=== PATIENT | female | born 1945 | race African-American/Black ===

== ENCOUNTER 2016-09-30 14:38 | Inpatient (IN) | payer MEDICARE, MEDICAID ==
[~2016-09-30] VITALS: Ht 160 cm; Wt 72.6 kg
[2016-09-30 15:07] VITALS: BP 73/24
--- NOTE | 2016-09-30 15:48 | Diagnostic Imaging Report ---
Indication: SOB Technique: One view of the chest Comparison: none Findings: Heart is mildly enlarged. There is central bronchial wall thickening, but no eliel congestion, infiltrate, or effusion. Impression: Cardiomegaly. No definite acute process
[2016-09-30 16:10] LABS: MEAN CORPUSCULAR HGB CONC 32.3 G/DL (32.0-36.0); MEAN CORPUSCULAR VOLUME 99 FL (80-99); MEAN PLATELET VOLUME 13.4 FL (6.5-10.1); PLATELET COUNT 119 K/UL (150-450); RED BLOOD COUNT 2.96 M/UL (4.20-5.40); WHITE BLOOD COUNT 17.4 K/UL (4.8-10.8)
[2016-09-30 16:14] LABS: BASOPHILS % (AUTO) 0.7 % (0.0-2.0); EOSINOPHILS % (AUTO) 0.1 % (0.0-3.0); LYMPHOCYTES % (AUTO) 5.8 % (20.0-45.0); MONOCYTES % (AUTO) 3.5 % (1.0-10.0)
[2016-09-30 16:23] LABS: INR 1.1 (0.9-1.1); PROTHROMBIN TIME 11.4 SEC (9.30-11.50)
[2016-09-30 16:29] LABS: ALANINE AMINOTRANSFERASE 78 U/L (3-33); ALBUMIN/GLOBULIN RATIO 0.7 (1.0-2.7); ASPARTATE AMINO TRANSFERASE 172 U/L (5-40); CALCIUM 8.5 mg/dL (8.6-10.2); CHLORIDE 95 mEQ/L (98-107); CREATININE 3.7 mg/dL (0.5-0.9); GLOMERULAR FILTRATION RATE 14.8 mL/min (>60); HEMOLYSIS 9; POTASSIUM 4.6 mEQ/L (3.4-4.9); SODIUM 129 mEQ/L (135-145)
[2016-09-30 16:31] LABS: TROPONIN I 23.56 ng/mL (<=0.30)
[2016-09-30 16:40] LABS: CKMB 60.4 ng/mL (< 3.8)
[2016-09-30] MEDS: Heparin 5000 units/ml inj IV ONE ×2 (16:40→16:43)
[2016-09-30 16:45] LABS: REFLEX LACTIC ACID YES OR NO YES
[2016-09-30] MEDS ORDERED: Heparin 25,000u/D5W 500ml 500 ML IV SCH (16:45)
[2016-09-30 16:51] LABS: ANION GAP 30 (5-15); CARBON DIOXIDE 4 mEQ/L (20-30)
[2016-09-30] MEDS ORDERED: FUROSEMIDE40 MG ORAL (16:58)
[2016-09-30] MEDS ORDERED: ASPIR 8181 MG ORAL (16:58)
[2016-09-30] MEDS ORDERED: SPIRONOLACTONE1 EACH ORAL (16:58)
[2016-09-30] MEDS ORDERED: ATORVASTATIN CA40 MG ORAL (16:58)
[2016-09-30] MEDS ORDERED: XANAX0.25 MG ORAL (16:58)
[2016-09-30] MEDS ORDERED: METOPROLOL TART50 M1 ORAL (16:58)
[2016-09-30] MEDS ORDERED: PLAQUENIL200 MG ORAL (16:58)
[2016-09-30] MEDS ORDERED: METFORMIN HCL500 M1 ORAL (16:58)
[2016-09-30] MEDS ORDERED: CHLORTHALIDONE25 MG ORAL (16:58)
[2016-09-30] MEDS ORDERED: ISOSORBIDE MON120 M1 PO (16:58)
[2016-09-30] MEDS ORDERED: AMLODIPINE BESY10 MG ORAL (16:58)
[2016-09-30] MEDS ORDERED: LEFLUNOMIDE20 MG PO (16:58)
[2016-09-30] MEDS ORDERED: CLOPIDOGREL75 MG ORAL (16:58)
[2016-09-30] MEDS ORDERED: Ampicillin/Sulbactam Sod 3 GM in NS 110 ML IVPB ONE (17:00)
[2016-09-30] MEDS ORDERED: Lidocaine 1% MPF 10mg/ml 5ml ONE (17:17)
[2016-09-30 17:57] VITALS: BP 98/50
[2016-09-30] MEDS ORDERED: DOPamine 400mg/250ml 250 ML IV SCH (18:00)
[2016-09-30 18:26] LABS: APPEARANCE,URINE SLIGHTLY CLOUDY; KETONES,URINE NEGATIVE (NEGATIVE); LEUKOCYTE ESTERASE ,URINE 2+ (NEGATIVE); NITRITE,URINE NEGATIVE (NEGATIVE); PH,URINE 5 (4.5-8.0); PROTEIN,URINE 2+ (NEGATIVE); UROBILINOGEN,URINE 1 MG/DL (0.0-1.0)
--- NOTE | 2016-09-30 18:29 | Emergency Room Report ---
History of Present Illness General Chief Complaint: Dyspnea/Respdistress Source: Patient, EMS Present Illness HPI Patient is a 71-year-old female brought in by ambulance after increased difficulty breathing. The patient gradual onset of symptoms with the past 2 days. Patient had subjective fever the patient was noted to be diabetic. Patient prior cardiac stent placement x3. Patient states that she usually followed at [facility]. Patient prior history of congestive heart failure. She had not been not been vomiting. The patient had some recent fall. Patient was noted to some diarrheal stool over the past few days. She Allergies: Coded Allergies: No Known Allergies (Unverified , 09/30/16) Patient History Past Medical History: see triage record Reviewed Nursing Documentation: PMH: Agreed, PSxH: Agreed Nursing Documentation-PMH Past Medical History: No History, Except For Hx Cardiac Problems: Yes - AFIB Hx Hypertension: Yes Hx Diabetes: Yes Hx Cerebrovascular Accident: Yes Review of Systems All Other Systems: negative except mentioned in HPI Physical Exam Vital Signs Date Time Temp Pulse Resp B/P Pulse Ox O2 Delivery O2 Flow Rate FiO2 09/30/16 14:34 69 20 115/87 96 Nasal Cannula 4.0 09/30/16 17:57 97.0 Sp02 EP Interpretation: reviewed, normal General Appearance: normal inspection, alert, GCS 15, severe distress Head: atraumatic ENT: normal ENT inspection, hearing grossly normal, normal voice Neck: normal inspection, full range of motion, supple, no bony tend Respiratory: normal inspection, lungs clear, normal breath sounds, no respiratory distress, no retraction, no wheezing Cardiovascular #1: regular rate, rhythm, no edema, no gallop Gastrointestinal: normal inspection, normal bowel sounds, non tender, soft, no guarding, no hernia Genitourinary: no CVA tenderness Musculoskeletal: normal inspection, back normal, normal range of motion Neurologic: normal inspection, alert, oriented x3, responsive, body builder III-XII nml as tested, speech normal, motor weakness - right lower extremity Psychiatric: normal inspection, judgement/insight normal, mood/affect normal Skin: no rash, pallor Procedures Critical Care Time Critical Care Time Patient had a critical medical condition which untreated could potentially result in life or limb threatening injury. Total critical care time excluding procedures approximately 1 hour . Central Line Central Line : Consent: Emergent Central Line Lumen: triple Maximal Sterile Barrier Tech: yes cap, yes mask, yes sterile gown, yes sterile gloves, yes large sterile sheet, yes hand hygiene, yes chlorhexidine prep Central Line Postion: internal jugular (R) Anesthesia: local cc's of anesthesia: 3 Complications: none Central Line Post Position: sutured, good blood return, position confirmed w / CXR Attempts: One Patient Tolerated: Well Complications: None Medical Decision Making Diagnostic Impression: Primary Impression: Respiratory distress Additional Impressions: Myocardial infarction Congestive heart failure Acute renal insufficiency Rhabdomyolysis Cardiogenic shock Anemia ER Course Patient presented for shortness of breath. Differential included but was not limited to anemia, pneumonia, pneumothorax, myocardial infarction, pericardial effusion, congestive heart failure, acidosis. Because of complexity of patient' s case laboratory testing and imaging studies were ordered. Patient was given IV fluids initially for hypotension. I EKG and rhythm me showed normal sinus rhythm with a rate of 62 with a left bundle-branch block. The patient noted be hypotensive. Patient had some improvement initially with IV fluids. Laboratory testing showed elevated white blood count as well as evidence of anemia. The patient was initially type and crossed for blood due to extreme pallor. Chest x-ray one view read by radiology showed cardiomegaly without evident acute processLaboratory testing was notable for a markedly elevated troponin. The patient started on IV pressor due to hypotension. A right internal jugular central venous line was placed. The patient was noted to have a markedly elevated creatinine per Dr. Diaz at [facility] the patient has had intermittent elevations or creatinine the past but not this elevated. Patient appears to have had a recent myocardial infarction. The patient started on aspirin as well as a heparin drip.The patient was noted to have a evidence of a recent myocardial injury. The patient may need cardiac catheterization despite elevated creatinine. The patient was discussed with . Labs Test 09/30/16 15:50 09/30/16 17:45 White Blood Count 17.4 K/UL (4.8-10.8) Red Blood Count 2.96 M/UL (4.20-5.40) Hemoglobin 9.5 G/DL (12.0-16.0) Hematocrit 29.3 % (37.0-47.0) Mean Corpuscular Volume 99 FL (80-99) Mean Corpuscular Hemoglobin 32.0 PG (27.0-31.0) Mean Corpuscular Hemoglobin Concent 32.3 G/DL (32.0-36.0) Red Cell Distribution Width 15.0 % (11.6-14.8) Platelet Count 119 K/UL (150-450) Mean Platelet Volume 13.4 FL (6.5-10.1) Neutrophils (%) (Auto) 90.0 % (45.0-75.0) Lymphocytes (%) (Auto) 5.8 % (20.0-45.0) Monocytes (%) (Auto) 3.5 % (1.0-10.0) Eosinophils (%) (Auto) 0.1 % (0.0-3.0) Basophils (%) (Auto) 0.7 % (0.0-2.0) Prothrombin Time 11.4 SEC (9.30-11.50) Prothromb Time International Ratio 1.1 (0.9-1.1) Activated Partial Thromboplast Time 33 SEC (23-33) Sodium Level 129 mEQ/L (135-145) Potassium Level 4.6 mEQ/L (3.4-4.9) Chloride Level 95 mEQ/L (98-107) Carbon Dioxide Level 4 mEQ/L (20-30) Anion Gap 30 (5-15) Blood Urea Nitrogen 98 mg/dL (7-23) Creatinine 3.7 mg/dL (0.5-0.9) Estimat Glomerular Filtration Rate 14.8 mL/min (>60) Glucose Level 262 mg/dL (74-106) Lactic Acid Level 4.00 mmol/L (0.66-2.22) Calcium Level 8.5 mg/dL (8.6-10.2) Total Bilirubin 0.3 mg/dL (0.0-1.2) Aspartate Amino Transf (AST/SGOT) 172 U/L (5-40) Alanine Aminotransferase (ALT/SGPT) 78 U/L (3-33) Alkaline Phosphatase 94 U/L (35-104) Total Creatine Kinase 5508 U/L (26-140) Creatine Kinase MB 60.4 ng/mL (< 3.8) Creatine Kinase MB Relative Index 1.0 Troponin I 23.56 ng/mL (<=0.30) Pro-B-Type Natriuretic Peptide > 32673 pg/mL (0-125) Total Protein 6.0 g/dL (6.6-8.7) Albumin 2.6 g/dL (3.5-5.2) Globulin 3.4 g/dL Albumin/Globulin Ratio 0.7 (1.0-2.7) EKG Diagnostic Results Rate: bradycardiac Rhythm: NSR ST Segments: other - left bundle branch block Chest X-Ray Diagnostic Results EP Interpretation: Yes Findings: no consolidation, no effusion, no pneumothorax, no acute cardiopulmonary disease Number of Views: 1 Last Vital Signs Date Time Temp Pulse Resp B/P Pulse Ox O2 Delivery O2 Flow Rate FiO2 09/30/16 18:06 98/50 09/30/16 17:57 97.0 63 29 94 Nasal Cannula 4.0 Status: unchanged Disposition: XFER [facility] Condition: Critical Referrals: [facility] (PCP) Jasson Fernández Sep 30, 2016 18:29
[2016-09-30 18:33] LABS: ICTOTEST NEGATIVE
[2016-09-30 18:45] LABS: BACTERIA,URINE MANY /HPF; SQUAMOUS EPITHELIAL CELL,UR MODERATE /LPF (NONE/OCC)
[2016-09-30 18:50] VITALS: BP 64/48
[2016-09-30] MEDS ORDERED: Unasyn 3gm Inj ONE (18:55)
[2016-09-30 20:20] VITALS: BP 99/76
--- NOTE | 2016-09-30 21:19 | Cardiology Progress Note ---
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 anemia acute renal failure icm acidosis possible rhabdomyolysis verly limited non recordable bedside echo by myself shows septum an apex akinetic possible inferior wall and distal ant akinetic as well bp has improved somewhat with ivf remain sig acidotic need dialysis with a bicarb of 4 need record form [place] empiric iv abx for now pending further info i have contacted linda arguelles nati may be micu if bed avialbel i doubt she will benfit form cath watch hgb with hydration heasd ct in light of head ache Objective Last 24 Hour Vital Signs Date Time Temp Pulse Resp B/P Pulse Ox O2 Delivery O2 Flow Rate FiO2 09/30/16 20:20 97.0 86 21 99/76 94 Nasal Cannula 4.0 09/30/16 18:50 64/48 09/30/16 18:50 97.0 70 25 64/48 94 Nasal Cannula 4.0 09/30/16 18:36 88/44 09/30/16 18:06 98/50 09/30/16 17:57 97.0 63 29 98/50 94 Nasal Cannula 4.0 09/30/16 15:07 63 24 73/24 96 Nasal Cannula 4.0 09/30/16 15:07 63 24 Nasal Cannula 4.0 09/30/16 14:34 69 20 115/87 96 Nasal Cannula 4.0 Laboratory Tests Test 09/30/16 15:50 09/30/16 17:45 09/30/16 19:00 White Blood Count 17.4 K/UL (4.8-10.8) H Red Blood Count 2.96 M/UL (4.20-5.40) L Hemoglobin 9.5 G/DL (12.0-16.0) L Hematocrit 29.3 % (37.0-47.0) L Mean Corpuscular Volume 99 FL (80-99) Mean Corpuscular Hemoglobin 32.0 PG (27.0-31.0) H Mean Corpuscular Hemoglobin Concent 32.3 G/DL (32.0-36.0) Red Cell Distribution Width 15.0 % (11.6-14.8) H Platelet Count 119 K/UL (150-450) L Mean Platelet Volume 13.4 FL (6.5-10.1) H Neutrophils (%) (Auto) 90.0 % (45.0-75.0) H Lymphocytes (%) (Auto) 5.8 % (20.0-45.0) L Monocytes (%) (Auto) 3.5 % (1.0-10.0) Eosinophils (%) (Auto) 0.1 % (0.0-3.0) Basophils (%) (Auto) 0.7 % (0.0-2.0) Prothrombin Time 11.4 SEC (9.30-11.50) Prothromb Time International Ratio 1.1 (0.9-1.1) Activated Partial Thromboplast Time 33 SEC (23-33) Sodium Level 129 mEQ/L (135-145) L Potassium Level 4.6 mEQ/L (3.4-4.9) Chloride Level 95 mEQ/L (98-107) L Carbon Dioxide Level 4 mEQ/L (20-30) *L Anion Gap 30 (5-15) H Blood Urea Nitrogen 98 mg/dL (7-23) H Creatinine 3.7 mg/dL (0.5-0.9) H Estimat Glomerular Filtration Rate 14.8 mL/min (>60) Glucose Level 262 mg/dL (74-106) H Lactic Acid Level 4.00 mmol/L (0.66-2.22) H 2.30 mmol/L (0.66-2.22) H Calcium Level 8.5 mg/dL (8.6-10.2) L Total Bilirubin 0.3 mg/dL (0.0-1.2) Aspartate Amino Transf (AST/SGOT) 172 U/L (5-40) H Alanine Aminotransferase (ALT/SGPT) 78 U/L (3-33) H Alkaline Phosphatase 94 U/L (35-104) Total Creatine Kinase 5508 U/L (26-140) H Creatine Kinase MB 60.4 ng/mL (< 3.8) H Creatine Kinase MB Relative Index 1.0 Troponin I 23.56 ng/mL (<=0.30) *H Pro-B-Type Natriuretic Peptide > 22378 pg/mL (0-125) H Total Protein 6.0 g/dL (6.6-8.7) L Albumin 2.6 g/dL (3.5-5.2) L Globulin 3.4 g/dL Albumin/Globulin Ratio 0.7 (1.0-2.7) L Urine Color Yellow Urine Appearance Slightly cloudy Urine pH 5 (4.5-8.0) Urine Specific [place] 1.025 (1.005-1.035) Urine Protein 2+ (NEGATIVE) H Urine Glucose (UA) 1+ (NEGATIVE) H Urine Ketones Negative (NEGATIVE) Urine Occult Blood 2+ (NEGATIVE) H Urine Nitrite Negative (NEGATIVE) Urine Bilirubin 2+ (NEGATIVE) H Urine Ictotest Negative Urine Urobilinogen 1 MG/DL (0.0-1.0) H Urine Leukocyte Esterase 2+ (NEGATIVE) H Urine RBC 5-10 /HPF (0 - 2) H Urine WBC 5-10 /HPF (0 - 2) H Urine Squamous Epithelial Cells Moderate /LPF (NONE/OCC) H Urine Bacteria Many /HPF (NONE) H JAYCOB MANN Sep 30, 2016 21:19
[2016-09-30 21:43] VITALS: BP 112/37
--- NOTE | 2016-09-30 22:39 | Consultation ---
DATE OF CONSULTATION: 09/30/2016 CRITICAL CARDIOLOGY CONSULTATION REASON FOR EVALUATION: Management of the hypotension and myocardial infarction. HISTORY OF PRESENT ILLNESS: This is a 71-year-old female, whose information is obtained from my discussion with the patient as well as her sister who just arrived here from [place] yesterday and from discussion with the emergency room physician, Dr. Fernández. It appears that this patient may have had some episodes of chest pain some time in the past few days, I am not clear but a week ago or four days ago. When her sister called her on Wednesday three days ago, she found her to be disoriented and tachypneic and confused. Her sister in [place] did have the paramedics visit her. Apparently, the paramedics did visit her and it is not clear what happened, but they never did take her to the emergency room. The patient's grandson was apparently there when the paramedics arrived, but he does not know what happened. Anyway, she had fallen and she was not able to get up and eventually was taken up and yesterday her sister called again. We tried to communicate with her and she was not answering. She came over apparently and found her between two beds. Her grandson did eventually show up and helped her out of bed, out at the position and into the bed. Her sister found her again confused and decided again because of her worsening condition today to bring her to the hospital here at the emergency room. She absolutely denies any chest pain at this time. Denies any shortness of breath. Denies any PND or orthopnea or palpitations, but she is sort of slow to mentate. Her past medical history is apparently positive for high blood pressure and high cholesterol, although she has been with those since yesterday. Today, nothing extraordinary happened, except for the persistent symptoms. Again, the patient denies any chest pain or pressure. No PND. No orthopnea. No palpitations at this time, but she is again confused. PAST MEDICAL HISTORY: Positive for a history of myocardial infarction a number of months ago, possibly in 07/2015. According to her sister, it appears that the information obtained by the emergency room physician here from [place] that she may have had a cardiac cath and had a non-ST elevation myocardial infarction. A stent was placed at that time. Creatinine is apparently at 1.2 and she had diffuse disease apparently and LV function post was reportedly 70%. ALLERGIES: The patient is not allergic to any medications. SOCIAL HISTORY: She has quit smoking 2 years ago. Does not drink alcoholic beverages. She apparently lives by herself. REVIEW OF SYSTEMS: She denies any nausea or vomiting. She has not eaten anything for a few days, certainly not since yesterday, but she thinks even before her sister's arrival, she has had not eaten anything. PHYSICAL EXAMINATION: GENERAL: Shows to be pale, middle-aged female, in no apparent respiratory distress. NECK: Supple. No jugular venous distention. LUNGS: Her lungs are absolutely clear to auscultation and percussion. CARDIAC: Regular rate and rhythm with holosystolic regurgitant murmur at the apex. ABDOMEN: Soft and obese. Positive bowel sounds. EXTREMITIES: There is no clubbing, cyanosis, nor is there any significant edema. PHYSICAL EXAMINATION: VITAL SIGNS: Her blood pressure has been as low as 64/48, but most recently is 112/65. LABORATORY DATA: Sodium 129, potassium 4.2, chloride 95, bicarbonate 4, BUN 98, creatinine 3.7, and glucose of 262. Lactic acid is 4 and subsequently 2.3. Calcium is 8.5. AST 172, ALT 78, and total CPK of 5500. Troponin is 23.56. ProBNP is greater than 70,000, however, in light of creatinine of 3.7, it may not be a trouble. Her albumin is 2.6. Her white count is 17.4 with a hemoglobin 9.5 and platelet count of 119,000. Coags, INR 1.1 and a PTT of 33. Urinalysis shows 5 to 10 WBCs, 5 to 10 RBCs, 2+ leukocyte esterase, 1+ urobilinogen, moderate squamous epithelial, many bacteria being noted. A chest x-ray performed in the emergency room shows cardiomegaly and possibly some left-sided effusion. Interpretation by the radiologist shows no acute process. EKG shows left bundle-branch conduction defect with secondary ST-segment changes in the leads 2 and 3 as well. ASSESSMENT AND PLAN: 1. Myocardial infarction with late presentation. 2. Acute renal failure. 3. Possible rhabdomyolysis. 4. Shock, probably a combination of hypovolemic as well as a component of cardiac dysfunction. 5. Anemia. This is prehydration. 6. Leukocytosis, possibly related to either myocardial infarction and/or combination with the possibility of an infectious process. This patient's condition has improved with some hydration here in the emergency room with latest blood pressure being 112. I suspect that she has actually been volume depleted because of her poor p.o. intake and possibly even had the experience of rhabdomyolysis that may have contributed to acute renal failure. I performed a bedside limited view echo that showed left ventricular systolic dysfunction. The entire septum and the apex appear to be hypokinetic or akinetic. There may be some akinetic in the distal inferior wall. Anterior wall proximally, which is visualized appears to have some motion. The ejection fraction is not estimable as I have not performed a full echocardiogram, just enough for this limited views in the probably approximately 35% or so. She is severely acidotic and she requires probably a combination of antibiotic therapy while supporting her cardiac-camacho and she would require possibly dialysis because of acidosis. I have contacted [facility] and discussed with the emergency room physician here with Dr. Jordan as well as [facility]. Await bed in the Medical Intensive Care unit to transfer her that she would probably get dialysis. I am unable to perform a dialysis catheter at this point here. [facility] is to transfer her to a higher level of care, so she gets dialysis. As far as her cath is concerned, I think she is too late in her presentation. She is not experiencing any chest pain at this time and I am not sure she is going to benefit from urgent cardiac catheterization, but she may benefit from other medical treatments including hydration and dialysis. Raman Greene M.D. DR: ELAN JOB#: [id number] CC:
[2016-09-30 23:15] VITALS: BP 111/93
[2016-09-30] MEDS ORDERED: Nitroglycerin Subl 0.4mg tab (Bottle Of 25) SL PRN (23:30)
[2016-09-30] MEDS ORDERED: Miralax 17gm pkt ORAL PRN (23:30)
[2016-09-30] MEDS ORDERED: Morphine Sulfate 4mg/ml Inj IVP PRN (23:30)
[2016-09-30] MEDS ORDERED: LORazepam Inj 2mg/ml 1ml IV PRN (23:30)
[2016-09-30] MEDS ORDERED: DuoNeb 0.5-3(2.5)mg/3ml neb HHN PRN (23:30)
[2016-09-30 23:55] LABS: INR 1.1 (0.9-1.1)
[2016-09-30 23:58] LABS: ALANINE AMINOTRANSFERASE 83 U/L (3-33); ALBUMIN/GLOBULIN RATIO 0.9 (1.0-2.7); ANION GAP 27 (5-15); ASPARTATE AMINO TRANSFERASE 194 U/L (5-40); CALCIUM 8.1 mg/dL (8.6-10.2); CHLORIDE 95 mEQ/L (98-107); CREATININE 3.4 mg/dL (0.5-0.9); GLOMERULAR FILTRATION RATE 16.2 mL/min (>60); HEMOLYSIS 2; POTASSIUM 4.4 mEQ/L (3.4-4.9); SODIUM 130 mEQ/L (135-145); TOTAL PROTEIN 5.8 g/dL (6.6-8.7)
[2016-10-01] VITALS (52 sets, daily range): BP systolic 73–127; BP diastolic 34–82
[2016-10-01] LABS: CARBON DIOXIDE 8 mEQ/L (20-30); TROPONIN I 19.62 ng/mL (<=0.30)
[2016-10-01] MEDS: DOPamine 400mg/250ml 250 ML IV SCH ×2 (01:17→09:07)
[2016-10-01] MEDS: Heparin 25,000u/D5W 500ml 500 ML IV SCH ×2 (01:24→13:05)
[2016-10-01 05:17] LABS: MEAN CORPUSCULAR HEMOGLOBIN 31.8 PG (27.0-31.0); MEAN CORPUSCULAR HGB CONC 31.5 G/DL (32.0-36.0); MEAN CORPUSCULAR VOLUME 101 FL (80-99); MEAN PLATELET VOLUME 14.1 FL (6.5-10.1); PLATELET COUNT 120 K/UL (150-450); RED BLOOD COUNT 3.04 M/UL (4.20-5.40); RED CELL DISTRIBUTION WIDTH 15.1 % (11.6-14.8); WHITE BLOOD COUNT 11.7 K/UL (4.8-10.8)
[2016-10-01 05:30] LABS: INR 1.1 (0.9-1.1); PROTHROMBIN TIME 11.1 SEC (9.30-11.50)
[2016-10-01 05:39] LABS: ALANINE AMINOTRANSFERASE 82 U/L (3-33); ALBUMIN/GLOBULIN RATIO 0.7 (1.0-2.7); ANION GAP 27 (5-15); ASPARTATE AMINO TRANSFERASE 187 U/L (5-40); CALCIUM 8.1 mg/dL (8.6-10.2); CHLORIDE 97 mEQ/L (98-107); CREATININE 3.3 mg/dL (0.5-0.9); GLOMERULAR FILTRATION RATE 16.8 mL/min (>60); HEMOLYSIS 6; MAGNESIUM 1.8 mg/dL (1.7-2.5); POTASSIUM 4.3 mEQ/L (3.4-4.9); SODIUM 131 mEQ/L (135-145); TOTAL PROTEIN 5.7 g/dL (6.6-8.7); URIC ACID 14.6 mg/dL (3.0-7.5)
[2016-10-01 05:41] LABS: BILIRUBIN,DIRECT 0.1 mg/dL (0.1-0.3); CARBON DIOXIDE 7 mEQ/L (20-30); PHOSPHORUS 6.7 mg/dL (2.5-4.8); TOTAL PROTEIN 5.8 g/dL (6.6-8.7)
[2016-10-01 05:43] LABS: REFLEX LACTIC ACID YES OR NO YES
[2016-10-01 05:48] LABS: APPEARANCE,URINE CLOUDY; KETONES,URINE NEGATIVE (NEGATIVE); LEUKOCYTE ESTERASE ,URINE 1+ (NEGATIVE); NITRITE,URINE NEGATIVE (NEGATIVE); PH,URINE 5 (4.5-8.0); PROTEIN,URINE 2+ (NEGATIVE); UROBILINOGEN,URINE NORMAL MG/DL (0.0-1.0)
[2016-10-01 05:51] LABS: TROPONIN I 10.75 ng/mL (<=0.30)
[2016-10-01 05:53] LABS: FREE T3 1.4 pg/mL (2.3-4.2); THYROID STIMULATING HORMONE 0.637 uIU/mL (0.300-4.500)
[2016-10-01 05:59] LABS: RBC,URINE 15-20 /HPF (0 - 2)
[2016-10-01 06:00] LABS: BACTERIA,URINE FEW /HPF; CALCIUM OXALATE CRYSTALS,UR FEW /LPF; HYALINE CASTS, URINE 0-2 /LPF; SQUAMOUS EPITHELIAL CELL,UR MODERATE /LPF (NONE/OCC)
[2016-10-01] MEDS: ALPRAZolam 0.25mg tab ORAL SCH ×2 (08:53→12:37)
[2016-10-01] MEDS ORDERED: Heparin 5000 units/ml inj SUBQ SCH (09:00)
[2016-10-01] MEDS ORDERED: Sodium Citrate 30ml ORAL ONE (09:15)
[2016-10-01] MEDS ORDERED: Sodium Bicarbonate 50 ML in NS 1000ml 1,000 ML IV SCH (09:26)
--- NOTE | 2016-10-01 09:28 | Consultation ---
Consult Note Consult Note asked to eval for renal failure- Patient is a 71-year-old female brought in by ambulance after increased difficulty breathing. The patient gradual onset of symptoms with the past 2 days. Patient had subjective fever the patient was noted to be diabetic. Patient prior cardiac stent placement x3. Patient states that she usually followed at [place]. Patient prior history of congestive heart failure. She had not been not been vomiting. The patient had some recent fall. Patient was noted to some diarrheal stool over the past few days. She Past Medical History: No History, Except For Hx Cardiac Problems: Yes - AFIB Hx Hypertension: Yes Hx Diabetes: Yes Hx Cerebrovascular Accident: Yes . Assessment/Plan status; acute renal failure- acute cardiac ischemic event Rhabdo Metabolic acidosis Anemia High CEA Plan: IV Protonix- IV bicard and PO Bicitra- Hydrate, watch for CHF Sx Anemia work up Plavix-Lipitor- ASA Monitor renal parameters- ARAMIS ZAPATA Oct 01, 2016 09:28
[2016-10-01] MEDS ORDERED: Pantoprazole Inj IVP SCH (10:00)
[2016-10-01] MEDS ORDERED: Atorvastatin 80mg tab ORAL ONE (10:00)
--- NOTE | 2016-10-01 10:09 | Diagnostic Imaging Report ---
Indication: SOB, status post central line placement Technique: One view of the chest Comparison: 3 hours earlier Findings: Interim placement right jugular central venous catheter, tip of which projects at the level of the cavoatrial junction. No gross pneumothorax. The heart is enlarged. The lungs and pleural spaces are clear Impression: Satisfactory placement right jugular central venous catheter, no radiographically evident complication Otherwise stable, as described
[2016-10-01 10:17] LABS: FERRITIN > 2000 ng/mL (13-150)
[2016-10-01 10:19] LABS: ABG BASE EXCESS -18.1; ABG PCO2 15.2 mmHg (35.0-45.0)
--- NOTE | 2016-10-01 10:46 | Diagnostic Imaging Report ---
Indication: PAIN Technique: spiral acquisitions obtained through the brain. Angled axial and coronal 5 x 5 mm slices were reconstructed. No IV contrast utilized. Radiation dose was minimized using automated exposure control Total dose length product 1502 mGycm. CTDIvol(s) 70 mGy Comparison: none FINDINGS: No acute hemorrhage or edema. No mass effect or midline shift. There is age-related enlargement of the ventricles and extra axial CSF spaces. There is periventricular deep white matter ischemic change. Normal novak-white differentiation. Visualized orbits are unremarkable. Visualized sinuses are unremarkable. Intact calvarium. 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 IMPRESSION: Chronic and age-related changes. Negative for acute intracranial bleed or mass effect This agrees with the preliminary interpretation provided overnight by [facility] teleradiology service. The CT scanner at [facility] is accredited by the [employer] and the scans are performed using protocols designed to limit radiation exposure to as low as reasonably achievable to attain images of sufficient resolution adequate for diagnostic evaluation
[2016-10-01] MEDS ORDERED: Sodium Citrate 30ml ORAL SCH (12:00)
--- NOTE | 2016-10-01 13:13 | Pulmonolgy Critical Care Note ---
Critical Care - Asmt/Plan Problems: (1) Cardiogenic shock (2) Acute renal insufficiency (3) Myocardial infarction Respiratory: monitor respiratory rate, adjust FIO2 Cardiac: continue pressors, continue to monitor HR/BP Renal: F/U I&O, keep IV fluid Infectious Disease: check cultures, continue antibiotics Gastrointestinal: continue feedings/current rate Endocrine: monitor blood sugar, continue sliding scale insulin Hematologic: monitor H/H, transfuse if hgb<8.5 Neurologic: PRN Ativan, PRN Morphine, keep patient comfortable Prophylaxis: Protonix Disposition: keep in ICU Notes Reviewed: cardio Discussed with: nurses, consultants, case repairersupply chain manager - Objective Last 24 Hour Vital Signs Date Time Temp Pulse Resp B/P Pulse Ox O2 Delivery O2 Flow Rate FiO2 10/01/16 12:00 98 10/01/16 11:45 97 25 98/52 97 Nasal Cannula 3.0 10/01/16 11:30 96 24 96/58 94 Nasal Cannula 3.0 10/01/16 11:15 94 26 96/59 97 Nasal Cannula 3.0 10/01/16 11:00 94 25 96/59 99 Nasal Cannula 3.0 10/01/16 10:45 96 24 93/54 94 Nasal Cannula 3.0 10/01/16 10:30 97 26 100/58 94 Nasal Cannula 3.0 10/01/16 10:15 102 21 112/70 97 Nasal Cannula 3.0 10/01/16 10:00 102 27 116/61 90 Nasal Cannula 3.0 10/01/16 09:45 101 26 108/58 97 Nasal Cannula 3.0 10/01/16 09:30 101 25 108/58 95 Nasal Cannula 3.0 10/01/16 09:15 102 25 116/59 90 Nasal Cannula 3.0 10/01/16 09:07 90/67 10/01/16 09:00 101 25 90/67 98 Nasal Cannula 3.0 10/01/16 08:45 95 23 82/48 93 Nasal Cannula 3.0 10/01/16 08:30 102 24 79/66 93 Nasal Cannula 3.0 10/01/16 08:15 97 24 105/53 93 Nasal Cannula 3.0 10/01/16 08:00 96.4 100 25 103/52 95 Nasal Cannula 3.0 10/01/16 08:00 99 10/01/16 07:45 97 24 105/53 93 Nasal Cannula 3.0 10/01/16 07:44 Nasal Cannula 5.0 40 10/01/16 07:40 99 Nasal Cannula 5.0 40 10/01/16 07:40 95.8 10/01/16 07:40 96 20 Nasal Cannula 5.0 40 10/01/16 07:30 97 24 105/53 93 Nasal Cannula 3.0 10/01/16 07:15 95 23 97/51 93 Nasal Cannula 3.0 10/01/16 07:00 97/82 10/01/16 07:00 98 20 97/82 93 Nasal Cannula 3.0 10/01/16 06:45 97 20 99/58 93 Nasal Cannula 3.0 10/01/16 06:30 94 20 88/52 93 Nasal Cannula 3.0 10/01/16 06:15 95 20 98/54 93 Nasal Cannula 3.0 10/01/16 06:00 97 20 112/72 93 Nasal Cannula 3.0 10/01/16 06:00 88/60 10/01/16 05:45 94 20 112/72 93 Nasal Cannula 3.0 10/01/16 05:30 95 20 112/72 93 Nasal Cannula 3.0 10/01/16 05:15 93 20 101/71 93 Nasal Cannula 3.0 10/01/16 05:00 92 20 112/72 93 Nasal Cannula 3.0 10/01/16 05:00 98/54 10/01/16 04:45 93 20 112/72 93 Nasal Cannula 3.0 10/01/16 04:30 93 20 112/72 93 Nasal Cannula 3.0 10/01/16 04:15 95 20 118/74 93 Nasal Cannula 3.0 10/01/16 04:00 85 10/01/16 04:00 95.8 88 20 94/54 93 Nasal Cannula 3.0 10/01/16 04:00 101/71 10/01/16 03:45 95 20 112/72 93 Nasal Cannula 3.0 10/01/16 03:30 90 20 116/74 93 Nasal Cannula 3.0 10/01/16 03:15 88 20 116/74 93 Nasal Cannula 3.0 10/01/16 03:00 93 20 95/81 93 Nasal Cannula 3.0 10/01/16 03:00 118/74 10/01/16 02:45 88 20 116/74 93 Nasal Cannula 3.0 10/01/16 02:30 91 20 98/60 93 Nasal Cannula 3.0 10/01/16 02:15 91 20 116/74 93 Nasal Cannula 3.0 10/01/16 02:00 95/81 10/01/16 02:00 88 20 112/74 93 Nasal Cannula 3.0 10/01/16 01:30 78 18 Nasal Cannula 3.0 32 10/01/16 01:30 88 20 114/74 93 Nasal Cannula 3.0 10/01/16 01:17 116/74 10/01/16 01:15 88 20 116/74 93 Nasal Cannula 3.0 10/01/16 01:00 93 Nasal Cannula 3.0 32 10/01/16 01:00 Nasal Cannula 3.0 32 10/01/16 01:00 86 20 80/62 92 Nasal Cannula 3.0 10/01/16 00:45 85 10/01/16 00:45 95.2 85 22 81/65 92 Nasal Cannula 3.0 10/01/16 00:17 97.0 87 18 119/77 96 Nasal Cannula 3.0 10/01/16 00:05 97.0 87 18 119/77 96 Nasal Cannula 3.0 09/30/16 23:15 97.0 82 14 111/93 95 Nasal Cannula 3.0 09/30/16 21:43 97.0 85 18 112/37 96 Nasal Cannula 4.0 09/30/16 20:20 97.0 86 21 99/76 94 Nasal Cannula 4.0 09/30/16 18:50 64/48 09/30/16 18:50 97.0 70 25 64/48 94 Nasal Cannula 4.0 09/30/16 18:36 88/44 09/30/16 18:06 98/50 09/30/16 17:57 97.0 63 29 98/50 94 Nasal Cannula 4.0 09/30/16 15:07 63 24 73/24 96 Nasal Cannula 4.0 09/30/16 15:07 63 24 Nasal Cannula 4.0 09/30/16 14:34 69 20 115/87 96 Nasal Cannula 4.0 Status: awake Condition: critical, improving HEENT: atraumatic Neck: full ROM Lungs: clear Heart: HR/BP stable Abdomen: soft, non-tender, active bowel sounds Extremities: no C/C/E, edema Decubiti: location Micro: Microbiology Date/Time Source Procedure Growth Status 09/30/16 17:45 Urine,Clean Catch Urine Culture - Preliminary Resulted Accucheck: 171 Critical Care - Subjective ROS Limited/Unobtainable: No ICU Day: 2 Interval Events: 71-year-old female with hx of DM, CAD, brought in by ambulance after increased difficulty breathing. Patient had subjective fever. she was diagnosed to have acute NE, urosepsis and acute on chronic renal failure and was started on heparin and dopamine drip and admitted to ICU. Condition: critical EKG Rhythm: Sinus Bradycardia FI02: 40 Fluids: bicarb drip, Heparin and Dopamin I&O: Intake and Output 09/30/16 10/01/16 19:00 07:00 Intake Total 950.459 ml Output Total 50 ml 290 ml Balance -50 ml 660.459 ml Intake IV Total 900.459 ml Other 50 ml Output Urine Total 50 ml 240 ml Emesis 50 ml CXR: NAD Labs: Laboratory Tests Test 09/30/16 15:50 09/30/16 17:45 09/30/16 19:00 09/30/16 23:18 White Blood Count 17.4 K/UL (4.8-10.8) H Red Blood Count 2.96 M/UL (4.20-5.40) L Hemoglobin 9.5 G/DL (12.0-16.0) L Hematocrit 29.3 % (37.0-47.0) L Mean Corpuscular Volume 99 FL (80-99) Mean Corpuscular Hemoglobin 32.0 PG (27.0-31.0) H Mean Corpuscular Hemoglobin Concent 32.3 G/DL (32.0-36.0) Red Cell Distribution Width 15.0 % (11.6-14.8) H Platelet Count 119 K/UL (150-450) L Mean Platelet Volume 13.4 FL (6.5-10.1) H Neutrophils (%) (Auto) 90.0 % (45.0-75.0) H Lymphocytes (%) (Auto) 5.8 % (20.0-45.0) L Monocytes (%) (Auto) 3.5 % (1.0-10.0) Eosinophils (%) (Auto) 0.1 % (0.0-3.0) Basophils (%) (Auto) 0.7 % (0.0-2.0) Erythrocyte Sedimentation Rate Pending Reticulocyte Count Pending Prothrombin Time 11.4 SEC (9.30-11.50) 11.0 SEC (9.30-11.50) Prothromb Time International Ratio 1.1 (0.9-1.1) 1.1 (0.9-1.1) Activated Partial Thromboplast Time 33 SEC (23-33) 81 SEC (23-33) H Sodium Level 129 mEQ/L (135-145) L 130 mEQ/L (135-145) L Potassium Level 4.6 mEQ/L (3.4-4.9) 4.4 mEQ/L (3.4-4.9) Chloride Level 95 mEQ/L (98-107) L 95 mEQ/L (98-107) L Carbon Dioxide Level 4 mEQ/L (20-30) *L 8 mEQ/L (20-30) *L Anion Gap 30 (5-15) H 27 (5-15) H Blood Urea Nitrogen 98 mg/dL (7-23) H 95 mg/dL (7-23) H Creatinine 3.7 mg/dL (0.5-0.9) H 3.4 mg/dL (0.5-0.9) H Estimat Glomerular Filtration Rate 14.8 mL/min (>60) 16.2 mL/min (>60) Glucose Level 262 mg/dL (74-106) H 269 mg/dL (74-106) H Lactic Acid Level 4.00 mmol/L (0.66-2.22) H 2.30 mmol/L (0.66-2.22) H Calcium Level 8.5 mg/dL (8.6-10.2) L 8.1 mg/dL (8.6-10.2) L Total Bilirubin 0.3 mg/dL (0.0-1.2) 0.2 mg/dL (0.0-1.2) Aspartate Amino Transf (AST/SGOT) 172 U/L (5-40) H 194 U/L (5-40) H Alanine Aminotransferase (ALT/SGPT) 78 U/L (3-33) H 83 U/L (3-33) H Alkaline Phosphatase 94 U/L (35-104) 93 U/L (35-104) Total Creatine Kinase 5508 U/L (26-140) H 6616 U/L (26-140) H Creatine Kinase MB 60.4 ng/mL (< 3.8) H Creatine Kinase MB Relative Index 1.0 Troponin I 23.56 ng/mL (<=0.30) *H 19.62 ng/mL (<=0.30) *H Pro-B-Type Natriuretic Peptide > 76581 pg/mL (0-125) H Total Protein 6.0 g/dL (6.6-8.7) L 5.8 g/dL (6.6-8.7) L Albumin 2.6 g/dL (3.5-5.2) L 2.8 g/dL (3.5-5.2) L Globulin 3.4 g/dL 3.0 g/dL Albumin/Globulin Ratio 0.7 (1.0-2.7) L 0.9 (1.0-2.7) L Urine Color Yellow Urine Appearance Slightly cloudy Urine pH 5 (4.5-8.0) Urine Specific Convoy 1.025 (1.005-1.035) Urine Protein 2+ (NEGATIVE) H Urine Glucose (UA) 1+ (NEGATIVE) H Urine Ketones Negative (NEGATIVE) Urine Occult Blood 2+ (NEGATIVE) H Urine Nitrite Negative (NEGATIVE) Urine Bilirubin 2+ (NEGATIVE) H Urine Ictotest Negative Urine Urobilinogen 1 MG/DL (0.0-1.0) H Urine Leukocyte Esterase 2+ (NEGATIVE) H Urine RBC 5-10 /HPF (0 - 2) H Urine WBC 5-10 /HPF (0 - 2) H Urine Squamous Epithelial Cells Moderate /LPF (NONE/OCC) H Urine Bacteria Many /HPF (NONE) H Test 10/01/16 04:55 10/01/16 05:00 10/01/16 09:45 10/01/16 10:10 White Blood Count 11.7 K/UL (4.8-10.8) H Red Blood Count 3.04 M/UL (4.20-5.40) L Hemoglobin 9.6 G/DL (12.0-16.0) L Hematocrit 30.6 % (37.0-47.0) L Mean Corpuscular Volume 101 FL (80-99) H Mean Corpuscular Hemoglobin 31.8 PG (27.0-31.0) H Mean Corpuscular Hemoglobin Concent 31.5 G/DL (32.0-36.0) L Red Cell Distribution Width 15.1 % (11.6-14.8) H Platelet Count 120 K/UL (150-450) L Mean Platelet Volume 14.1 FL (6.5-10.1) H Neutrophils (%) (Auto) % (45.0-75.0) Lymphocytes (%) (Auto) % (20.0-45.0) Monocytes (%) (Auto) % (1.0-10.0) Eosinophils (%) (Auto) % (0.0-3.0) Basophils (%) (Auto) % (0.0-2.0) Prothrombin Time 11.1 SEC (9.30-11.50) Prothromb Time International Ratio 1.1 (0.9-1.1) Activated Partial Thromboplast Time 69 SEC (23-33) H Urine Osmolality Pending Sodium Level 131 mEQ/L (135-145) L Potassium Level 4.3 mEQ/L (3.4-4.9) Chloride Level 97 mEQ/L (98-107) L Carbon Dioxide Level 7 mEQ/L (20-30) *L Anion Gap 27 (5-15) H Blood Urea Nitrogen 100 mg/dL (7-23) H Creatinine 3.3 mg/dL (0.5-0.9) H Estimat Glomerular Filtration Rate 16.8 mL/min (>60) Glucose Level 256 mg/dL (74-106) H Plasma/Serum Osmolality Pending Lactic Acid Level 2.80 mmol/L (0.66-2.22) H 3.00 mmol/L (0.66-2.22) H Uric Acid 14.6 mg/dL (3.0-7.5) H Calcium Level 8.1 mg/dL (8.6-10.2) L Phosphorus Level 6.7 mg/dL (2.5-4.8) H Magnesium Level 1.8 mg/dL (1.7-2.5) Iron Level 34 ug/dL (37-145) L Total Iron Binding Capacity 143 ug/dL (250-400) L Percent Iron Saturation 24 % (15-50) Unsaturated Iron Binding 109 ug/dL (112-346) L Ferritin > 2000 ng/mL (13-150) H Total Bilirubin 0.2 mg/dL (0.0-1.2) Direct Bilirubin 0.1 mg/dL (0.1-0.3) Gamma Glutamyl Transpeptidase 32 U/L (5-36) Aspartate Amino Transf (AST/SGOT) 187 U/L (5-40) H Alanine Aminotransferase (ALT/SGPT) 83 U/L (3-33) H Alkaline Phosphatase 92 U/L (35-104) Lactate Dehydrogenase 1043 U/L (135-230) H Total Creatine Kinase 6422 U/L (26-140) H Troponin I 10.75 ng/mL (<=0.30) *H Total Protein 5.8 g/dL (6.6-8.7) L Albumin 2.5 g/dL (3.5-5.2) L Globulin 3.3 g/dL Albumin/Globulin Ratio 0.7 (1.0-2.7) L Carcinoembryonic Antigen 17.3 ng/mL H Vitamin B12 Level 219 pg/mL (211-946) Folate Pending Thyroid Stimulating Hormone (TSH) 0.637 uIU/mL (0.300-4.500) Free Thyroxine 0.95 ng/dL (0.86-1.85) Free Triiodothyronine 1.4 pg/mL (2.3-4.2) L Cortisol Pending Urine Color Yellow Urine Appearance Cloudy Urine pH 5 (4.5-8.0) Urine Specific Convoy 1.020 (1.005-1.035) Urine Protein 2+ (NEGATIVE) H Urine Glucose (UA) Negative (NEGATIVE) Urine Ketones Negative (NEGATIVE) Urine Occult Blood 5+ (NEGATIVE) H Urine Nitrite Negative (NEGATIVE) Urine Bilirubin Negative (NEGATIVE) Urine Urobilinogen Normal MG/DL (0.0-1.0) Urine Leukocyte Esterase 1+ (NEGATIVE) H Urine RBC 15-20 /HPF (0 - 2) H Urine WBC 10-15 /HPF (0 - 2) H Urine Squamous Epithelial Cells Moderate /LPF (NONE/OCC) H Urine Calcium Oxalate Crystals Few /LPF (NONE) Urine Bacteria Few /HPF (NONE) Urine Hyaline Casts 0-2 /LPF (NONE) H Urine Coarse Granular Casts 2-4 /LPF (NONE) H Urine Eosinophils None seen Urine Random Sodium 26 mmol/L Urine Random Chloride 21 mmol/L Urine Potassium Timed 25 mmol/L Arterial Blood pH 7.267 (7.350-7.450) Arterial Blood Partial Pressure CO2 15.2 mmHg (35.0-45.0) *L Arterial Blood Partial Pressure O2 164.3 mmHg (75.0-100.0) H Arterial Blood HCO3 6.8 mmol/L (22.0-26.0) L Arterial Blood Oxygen Saturation 98.7 % (92.0-98.0) H Arterial Blood Base Excess -18.1 William Test N/a MELISSA ROBLES Oct 01, 2016 13:13
[2016-10-01] MEDS ORDERED: Tubing IV Secondary IV ONE (15:53)
[2016-10-01] MEDS ORDERED: 1/2 NS 1000ml IV ONE (15:53)
[2016-10-01] MEDS ORDERED: NS 275ml ONE (15:53)
--- NOTE | 2016-10-01 16:40 | Diagnostic Imaging Report ---
Indication: Abnormal renal function tests Technique: Grayscale and duplex images of the kidneys, retroperitoneum, and bladder were obtained. Comparison: Findings: Right kidney measures 13 cm in length. Left kidney measures 12.9 cm in length. Both kidneys demonstrate slightly increased echogenicity. No hydronephrosis. Left kidney demonstrates a small cyst. Normal inferior vena cava. Bladder is empty, contains a Edmonds catheter. Incidentally noted in the anterior liver is a 5.1 x 2.9 cm hyperechoic lesion Impression: Bilateral slightly increased renal echogenicity, may indicate early medical renal disease Negative for hydronephrosis 5.1 x 2.9 cm hyperechoic lesion within the liver. Possibly but not definitely a benign hemangioma. Consider further evaluation with hemangioma protocol liver CT or MRI. Incidental finding of small left renal cyst
--- NOTE | 2016-10-01 17:59 | History & Physical ---
History and Physical History & Physicial Dictated for Int Med-Dr Jordan no. [id number]. ICU HARVEYBRITTANY Oct 01, 2016 17:59
--- NOTE | 2016-10-01 22:49 | History and Physical Report ---
DATE OF ADMISSION: 09/30/2016 CHIEF COMPLAINT: The patient is a 71-year-old female with history of coronary artery disease. He presents with complaint of chest pain. HISTORY OF PRESENT ILLNESS: He began yesterday, 09/30/2016. The patient has a history of coronary artery disease. The patient presented to [facility]. She had been experiencing chest pain. The patient was found to have elevated troponin. The patient was admitted for acute coronary syndrome. REVIEW OF SYSTEMS: Constitutional: The patient denies weight loss or weight gain. The patient denies fevers or chills. HEENT: The patient denies any ear or throat pain. Cardiovascular: The patient complains of chest pain as above. The patient denies palpitations. Abdomen: The patient denies nausea, vomiting, diarrhea, or constipation. Genitourinary: The patient denies dysuria or increased frequency of urination. The rest of the patient's history generalized weakness. PAST MEDICAL HISTORY: 1. Coronary disease, status post stent placement x3. 2. Hypertension. 3. Hypercholesterolemia. 4. Diabetes type 2. PAST SURGICAL HISTORY: The patient denies. CURRENT MEDICATIONS: 1. Xanax 0.25 mg 1 tablet p.o. 3 times daily. 2. Norvasc 10 mg one tablet p.o. daily. 3. Aspirin 81 mg one tablet p.o. daily. 4. Lipitor 40 mg one tablet p.o. nightly. 5. Chlorthalidone 25 mg one tablet p.o. daily. 6. Clopidogrel 75 mg one tablet p.o. daily. 7. Lasix 40 mg one tablet p.o. daily. 8. Plaquenil 200 mg one tablet p.o. daily. 9. Isosorbide mononitrate 120 mg 1 tablet by mouth daily. 10. Leflunomide 20 mg one tablet p.o. daily. 11. Metformin 500 mg one tablet p.o. twice daily. 12. Metoprolol 50 mg one tablet p.o. twice daily. 13. Spironolactone/hydrochlorothiazide 25/25 one tablet by p.o. daily. ALLERGIES: No known drug allergies. SOCIAL HISTORY: The patient denies tobacco or alcohol use. PHYSICAL EXAMINATION: VITAL SIGNS: Temperature 96.4 degrees, blood pressure 103/52, and respiratory rate 25. GENERAL: Generally, the patient is a well-developed and well-nourished slightly obese, female, in moderate distress. HEENT: Pupils are equal and responsive to light and accommodation. Extraocular movements are intact. NECK: Supple without lymphadenopathy. LUNGS: Clear to auscultation bilaterally without wheezes or rales. CARDIOVASCULAR: Regular rhythm and rate. S1 and S2 are normal. No murmurs, rubs, or gallops. ABDOMEN: Soft, nontender, and nondistended. Positive bowel sounds. No hepatosplenomegaly. Currently, no . RECTAL: Refused. GENITAL: Refused. NEUROLOGIC: Cranial nerves II through XII are grossly intact without focal deficits. Motor strength is 5/5. Deep tendon reflexes are 2+ plantar. LABORATORY STUDIES: WBC 17.4, hemoglobin 9.5, hematocrit 29.3, and platelets 119,000. Sodium 131, potassium 4.3, chloride 97, CO2 of 7, BUN 100, creatinine 3.3, glucose 256. Troponin was elevated at 19.62. ASSESSMENT: This is a 71-year-old female with 1. Acute myocardial infarction. 2. Cardiogenic shock. 3. Acute renal failure. 4. Diabetes type 2. 5. History of coronary artery disease. 6. Hypertension. 7. Hypercholesterolemia. TREATMENT: 1. Acute myocardial infarction/cardiogenic shock. A Cardiology consultation obtained with Dr. Raman Greene. We will follow recommendations of Cardiology. The patient may be transferred to higher level of care. 2. Acute renal failure may be secondary to prerenal versus acute on chronic renal failure. The patient does have a history of diabetic nephropathy. A nephrology consultation. 3. Diabetes type 2. The patient is placed on NovoLog sliding scale. 4. Hypertension, the patient is currently hypotensive. 5. Hypercholesterolemia, continue Lipitor as above . Surya Weber M.D. DR: Jorge A JOB#: [id number] CC:
[2016-10-02] MEDS ORDERED: Sodium Bicarbonate 50 ML in NS 1000ml 1,000 ML IV SCH (01:00)
[2016-10-02 09:14] LABS: CORTISOL LC 19.6 ug/dL (.)
--- NOTE | 2016-10-02 15:15 | Cardiology Report ---
APPROVED REPORT EKG Measurement Heart [id number] Ectopic atrial rhythm Left bundle branch block Abnormal ECG
[2016-10-03] MEDS ORDERED: Levofloxacin 250mg/D5W 50ml IVPB SCH (02:00)
--- NOTE | 2016-10-05 09:39 | Discharge Summary 2 SIG ---
DATE OF ADMISSION: 09/30/2016 DATE OF DISCHARGE: 10/01/2016 CONSULTANTS: 1. Mckenzie Wilcox M.D. 2. Amandeep Rees M.D. BRIEF HOSPITAL COURSE: The patient is a thin 71-year-old female, who was brought in by ambulance after increased difficulty breathing for the past two days. She had subjective fever and was noted to be diabetic. She had a prior history of cardiac stent placement, history of congestive heart failure, and is usually followed up at [facility]. She was noted to have some diarrhea for the past few days. On evaluation, the patient was found to have markedly elevated creatinine. The patient appeared to have recent SC. Dr. Greene was consulted. EKG showed bundle-branch conduction defect with secondary ST-segment changes in leads 2 and 3 as well. Her chest x-ray showed cardiomegaly and possibly some left-sided effusion. Dr. Rees was also consulted and was continued on IV hydration, IV bicarbonate, and p.o. bacitracin. She was eventually transferred to [facility]. FINAL DIAGNOSES: 1. Acute myocardial infarction plus cardiogenic shock. 2. Acute renal failure secondary to prerenal versus acute on chronic renal failure. 3. Diabetes type 2. 4. Hypertension. 5. Hypercholesterolemia. Jj Jordan M.D. I have been assigned to dictate discharge summary on this account and I was not involved in the patient's management. Tiera Palmer N.P. DR: CHARISMA JOB#: [id number] CC: DOMINIC
== END 2016-10-01 15:54 | disposition short-term general hospital (02) | DRG 280 ==
LOC: EDBD 14:38 → EMR 15:06 → ICU 15:55
PROC: 05HM33Z Insertion of Infusion Device into Right Internal Jugular Vein, Percutaneous Approach (ICD-10-PCS; principal; 2016-09-30)
DX: I21.3 ST elevation (STEMI) myocardial infarction of unspecified site (principal); R57.0 Cardiogenic shock; N17.9 Acute kidney failure, unspecified; I12.9 Hypertensive chronic kidney disease with stage 1 through stage 4 chronic kidney disease, or unspecified chronic kidney disease; E11.9 Type 2 diabetes mellitus without complications; D64.9 Anemia, unspecified; M62.82 Rhabdomyolysis; N18.9 Chronic kidney disease, unspecified; E78.00 Pure hypercholesterolemia, unspecified; I25.10 Atherosclerotic heart disease of native coronary artery without angina pectoris; Z95.5 Presence of coronary angioplasty implant and graft; Z87.891 Personal history of nicotine dependence; I25.2 Old myocardial infarction; I48.91 Unspecified atrial fibrillation; Z86.73 Personal history of transient ischemic attack (TIA), and cerebral infarction without residual deficits; I44.7 Left bundle-branch block, unspecified
CPT/HCPCS: 36415; 36600; 70450; 71010; 76775; 80053; 80076; 81001; 81003; 82378; 82436; 82533; 82550; 82553; 82607; 82728; 82746; 82803; 82962; 82977; 83540; 83550; 83605; 83615; 83735; 83880; 83930; 83935; 84100; 84133; 84300; 84439; 84443; 84481; 84484; 84550; 85025; 85610; 85730; 86850; 86900; 86901; 86920; 87040; 87081; 87086; 89050; 93005; 94664; 94760